=== PATIENT | female | born 1990 | race African-American/Black ===

== ENCOUNTER 2017-07-25 10:35 | Inpatient (IN) | payer OTHER ==
[2017-07-25] MEDS ORDERED: MISOPROSTOL 200 MCG TAB PR (12:00)
[2017-07-25] MEDS ORDERED: CARBOPROST 250 MCG INJ IM (12:00)
[2017-07-25] MEDS ORDERED: LIDOCAINE 1% (MPF) 30 ML INJ INJ (12:00)
[2017-07-25] MEDS ORDERED: METHYLERGONOVINE 0.2 MG INJ IM (12:00)
[2017-07-25] MEDS ORDERED: OXYTOCIN 30 UNITS/LR 500 ML IV (12:00)
[2017-07-25 12:58] LABS: ADD MAN DIFF? NO
[2017-07-25 13:07] LABS: BASOPHILS % 0.2 % (0.0-2.0); EOSINOPHILS # 0.1 10^3/ul (0.0-0.5); EOSINOPHILS % 0.7 % (0.0-7.0); HEMATOCRIT 35.3 % (37.0-47.0); HEMOGLOBIN 11.3 g/dl (12.0-16.0); LYMPHOCYTES # 2.3 10^3/ul (0.8-2.9); LYMPHOCYTES % 20.1 % (15.0-51.0); MEAN CORPUSCULAR HEMOGLOBIN 25.4 pg (29.0-33.0); MEAN CORPUSCULAR VOLUME 79.3 fl (82.0-101.0); MEAN PLATELET VOLUME 10.7 fl (7.4-10.4); MONOCYTE # 1.3 10^3/ul (0.3-0.9); MONOCYTES % 11.7 % (0.0-11.0); NEUTROPHIL # 7.5 10^3/ul (1.6-7.5); NEUTROPHILS % 66.9 % (39.0-77.0); PLATELET COUNT 291 10^3/UL (140-415); RED BLOOD COUNT 4.45 10^6/ul (4.20-5.40); RED CELL DISTRIBUTION WIDTH 14.6 % (11.5-14.5)
[2017-07-25 13:07] LABS: WHITE BLOOD COUNT 11.2 10^3/ul (4.8-10.8)
[2017-07-25 13:29] LABS: INR 0.92; PROTIME 12.4 Sec (11.9-14.9)
[2017-07-25 13:30] LABS: PARTIAL THROMBOPLASTIN TIME 30.4 Sec (25.0-35.0)
[2017-07-25] MEDS: LACTATED RINGER'S 1,000 ML IV ×3 (13:47→21:47)
[2017-07-25] MEDS: DINOPROSTONE 10 MG VAG SUPP VAG (14:06)
[2017-07-25 14:25] LABS: HEPATITIS B SURFACE ANTIGEN NEGATIVE (NEGATIVE)
[2017-07-25 15:26] LABS: RAPID PLASMA REAGIN NONREACTIVE (NR)
[2017-07-25 15:28] LABS: GLUCOSE 85 mg/dl (70-220)
[2017-07-25] MEDS: DEXTROSE 5%-LR 1,000 ML IV (21:54)
[2017-07-26] MEDS: MISOPROSTOL 25 MCG CAPSULE PO ×5 (04:09→20:30)
[2017-07-26] MEDS ORDERED: MISOPROSTOL 25 MCG CAPSULE PO (05:00)
[2017-07-26] MEDS: BUTORPHANOL 2 MG INJ IV ×2 (07:00→17:37)
[2017-07-26] MEDS: DEXTROSE 5%-LR 1,000 ML IV ×2 (11:16→17:22)
[2017-07-26] MEDS: LACTATED RINGER'S 1,000 ML IV (13:03)
[2017-07-26] MEDS: OXYTOCIN 30 UNITS/LR 500 ML IV (13:15)
[2017-07-26] MEDS: LACTATED RINGER'S 500 ML IV ×2 (16:04→20:53)
[2017-07-26] MEDS ORDERED: FENTAnyl 2MCG/ML-ROPIV 0.2% 100 ML (21:02)
[2017-07-26] MEDS ORDERED: DIPHENHYDRAMINE 50 MG INJ IV (21:30)
[2017-07-26] MEDS ORDERED: HYDROmorphONE 0.5 MG/0.5 ML SYG IV ×2 (21:30)
[2017-07-26] MEDS ORDERED: KETOROLAC 30 MG INJ IV (21:30)
[2017-07-26] MEDS ORDERED: NALOXONE (0.4 MG/ML) INJ IV (21:30)
[2017-07-26] MEDS ORDERED: ONDANSETRON 4 MG INJ IV (21:30)
[2017-07-27] MEDS: MISOPROSTOL 25 MCG CAPSULE PO (00:30)
[2017-07-27] MEDS: DEXTROSE 5%-LR 1,000 ML IV (01:38)
[2017-07-27] MEDS: FENTAnyl 2MCG/ML-ROPIV 0.2% 100 ML BAG EPI (04:50)
[2017-07-27] MEDS: OXYTOCIN 30 UNITS/LR 500 ML IV ×2 (07:27→07:37)
[2017-07-27] MEDS: IBUPROFEN 600 MG TAB PO ×3 (08:44→18:03)
[2017-07-27] MEDS ORDERED: OXYCODONE/ASPIRIN (4.88/325) TAB PO (10:00)
[2017-07-27] MEDS ORDERED: METHYLERGONOVINE 0.2 MG INJ IM (10:00)
[2017-07-27] MEDS ORDERED: OXYTOCIN 30 UNITS/LR 500 ML IV (10:00)
[2017-07-27] MEDS ORDERED: MISOPROSTOL 200 MCG TAB PR (10:00)
[2017-07-27] MEDS ORDERED: ZOLPIDEM 5 MG TAB PO (10:00)
[2017-07-27] MEDS ORDERED: CARBOPROST 250 MCG INJ IM (10:00)
[2017-07-27] MEDS: WITCH HAZEL/GLYCERIN PAD PR (10:29)
[2017-07-27] MEDS: BENZOCAINE 20% 56 ML SPRAY TOP (10:30)
[2017-07-27] MEDS: LANOLIN 7 GM TUBE TOP (10:30)
[2017-07-27] MEDS: SENNA/DOCUSATE NA (8.6MG/50MG) TAB PO ×2 (12:00→20:32)
[2017-07-28] MEDS: IBUPROFEN 600 MG TAB PO ×4 (05:54→17:52)
[2017-07-28 08:38] LABS: ADD MAN DIFF? NO
[2017-07-28 08:44] LABS: WHITE BLOOD COUNT 12.6 10^3/ul (4.8-10.8)
[2017-07-28 08:44] LABS: BASOPHILS % 0.2 % (0.0-2.0); EOSINOPHILS # 0.1 10^3/ul (0.0-0.5); HEMATOCRIT 32.6 % (37.0-47.0); HEMOGLOBIN 10.5 g/dl (12.0-16.0); LYMPHOCYTES # 3.5 10^3/ul (0.8-2.9); LYMPHOCYTES % 27.4 % (15.0-51.0); MEAN CORPUSCULAR HGB CONC 32.2 g/dl (32.0-37.0); MEAN CORPUSCULAR VOLUME 80.7 fl (82.0-101.0); MEAN PLATELET VOLUME 10.8 fl (7.4-10.4); MONOCYTE # 1.5 10^3/ul (0.3-0.9); MONOCYTES % 11.5 % (0.0-11.0); NEUTROPHIL # 7.5 10^3/ul (1.6-7.5); NEUTROPHILS % 59.5 % (39.0-77.0); PLATELET COUNT 257 10^3/UL (140-415); RED BLOOD COUNT 4.04 10^6/ul (4.20-5.40); RED CELL DISTRIBUTION WIDTH 14.9 % (11.5-14.5)
[2017-07-28] MEDS: SENNA/DOCUSATE NA (8.6MG/50MG) TAB PO ×2 (09:16→21:00)
[2017-07-28] MEDS: OXYCODONE/ASPIRIN (4.88/325) TAB PO (19:48)
[2017-07-29] MEDS: IBUPROFEN 600 MG TAB PO ×3 (01:00→13:15)
[2017-07-29] MEDS: SENNA/DOCUSATE NA (8.6MG/50MG) TAB PO (09:07)
[2017-07-29] MEDS: DIPHTH/TET/ACEL PERTUSS (ADULT) 0.5 ML VIAL IM* (13:23)
[2017-07-29] MEDS: BENZOCAINE 20% 56 ML SPRAY TOP (14:38)
== END 2017-07-29 15:25 | disposition home or self-care (01) | DRG 775 ==
LOC: OBT 10:35 → L-D 07-27 08:27 → PP1 07-27 09:43 → OBT 11:27 → PP1 07-27 11:25 → L-D 11:25
PROVIDERS: Obstetrics & Gynecology
PROC: 10E0XZZ Delivery of Products of Conception, External Approach (ICD-10-PCS; principal; 2017-07-26)
PROC: 0HQ9XZZ Repair Perineum Skin, External Approach (ICD-10-PCS; 2017-07-26)
PROC: 3E033VJ Introduction of Other Hormone into Peripheral Vein, Percutaneous Approach (ICD-10-PCS; 2017-07-26)
DX: O48.0 Post-term pregnancy (principal); Z68.41 Body mass index [BMI] 40.0-44.9, adult; Z3A.40 40 weeks gestation of pregnancy; O24.429 Gestational diabetes mellitus in childbirth, unspecified control; O69.81X0 Labor and delivery complicated by cord around neck, without compression, not applicable or unspecified; O99.214 Obesity complicating childbirth; E66.01 Morbid (severe) obesity due to excess calories; O70.0 First degree perineal laceration during delivery; Z37.0 Single live birth
CPT/HCPCS: 62319; 76815; 76818; 82947; 82962; 85025; 85610; 85730; 86592; 86900; 86901; 87340; 90715